=== PATIENT | male | born 2005 | race Caucasian/White ===

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

== ENCOUNTER → 2025-02-02 | Outpatient (CLI) | payer OTHER, SELFPAY ==
[2025-02-08 02:07] LABS: Beef <0.10 kU/L (Class 0); Chicken <0.10 kU/L (Class 0); Clam <0.10 kU/L (Class 0); Codfish <0.10 kU/L (Class 0); Corn 0.23 kU/L (Class 0/I); Egg, White <0.10 kU/L (Class 0); Egg, Yolk <0.10 kU/L (Class 0); Gluten <0.10 kU/L (Class 0); Milk (Cow) <0.10 kU/L (Class 0); Peanut 0.43 kU/L (Class I); Rice 0.12 kU/L (Class 0/I); SCALLOP 0.11 kU/L (Class 0/I); SESAME SEED 0.49 kU/L (Class I); Shrimp <0.10 kU/L (Class 0); Soybean <0.10 kU/L (Class 0); Walnut, (Food) <0.10 kU/L (Class 0); Wheat 0.19 kU/L (Class 0/I); Yeast <0.10 kU/L (Class 0)
== END | disposition home or self-care (01) ==
LOC: LAB 11:38
PROVIDERS: Referring Provider Otolaryngology; Visit Provider Otolaryngology
DX: T78.40XA Allergy, unspecified, initial encounter (principal)
CPT/HCPCS: 36415; 86003